=== PATIENT | female | born 1995 | race Caucasian/White ===

== ENCOUNTER 2017-09-16 00:54 | Emergency (ER) | payer BC, OTHER ==
[2017-09-16 01:06] VITALS: BP 97/69; PULSE 88; TEMP 97.6; BMI 19.6
[2017-09-16] MEDS ORDERED: MAG HYDROX/AL HYDROX/SIMETH 30 ML UNIT-DOSE CUP PO ONE (01:06)
[2017-09-16] MEDS ORDERED: LIDOCAINE VISCOUS 2% ORAL/TOP 20 ML UNIT-DOSE CUP MM ONE (01:09)
--- NOTE | 2017-09-16 01:11 | PDOC ---
History of Present Illness - General Chief Complaint: Pain, Acute Stated Complaint: ABDOMINAL PAIN Time Seen by Provider: 09/16/17 01:06 History Source: Patient Exam Limitations: No Limitations - History of Present Illness Initial Comments: 09/16/17 01:11 This is a 22-year-old female who comes in complaining of burning epigastric pain that began tonight. Patient said she's had 2 episodes of similar pain in the past. Patient saw a GI doctor today and was told it may be gallstones. Patient denies any nausea, vomiting, diarrhea. Patient denies any fevers or chills. Patient did not take anything for the pain. PAST MEDICAL HISTORY: no significant history PAST SURGICAL HISTORY: no significant history FAMILY HISTORY: no pertinant history SOCIAL HISTORY: Pt lives with family and is employed. MEDICATIONS: reviewed ALLERGIES: As per nursing notes Review of Systems General: No fevers or chills, no weakness, no weight loss HEENT: No change in vision. No sore throat,. No ear pain CardioVascular: No chest pain or shortness of breath Respiratory:No cough, or wheezing. Gastrointestinal: no nausea, vomitting, diarrhea or constipation, No rectal bleeding Genitourinary: No dysuria, hematuria, or frequency Musculoskeletal: No joint or muscle pain or swelling Neurologic: No headache, vertigo, dizziness or loss of consciousness Psychiatric: nor depression Skin: No rashes or easy bruising Endocrine: no increased thirst or abnormal weight change Allergic: no skin or latex allergy All other systems reviewed and normal Exam: General: Well-nourished well-developed individual, no acute distress HEENT: Throat: Normal, tonsils normal, no erythema or exudate Neck: Supple, no meningeal signs, no lymphadenopathy Eyes::Pupils equal reactive and round, extraocular motion intact Chest: Nontender to palpation Abdomen: Soft, nondistended, normal bowel sounds, nontender to palpation diffusely Extremities: Warm, dry, no cyanosis, clubbing, or edema Skin: No rashes Neuro: Alert and oriented x3, CN II - XII intact, nonfocal exam with normal strength, normal sensation, normal reflexes, normal gait, Psych: Normal mood and affect Medical decision making: This is a 22-year-old female comes in complaining of a burning type of epigastric pain. We'll get a ultrasound of the gallbladder to rule out gallstones We'll give antacid and reassess and reevaluate results of workup. 09/16/17 02:20 Patient feels much better after the antacids. Patient resting comfortably. Patient's ultrasound negative for any gallstones or acute pathology. Patient discharged home with her parents will follow-up with her primary care doctor, her GI doctor and patient was told to get some [id number]-uxohozn S and antacids such as Pepcid or Zantac and take them Past History - Past Medical History Allergies/Adverse Reactions: Allergies Allergy/AdvReac Type Severity Reaction Status Date / Time No Known Allergies Allergy Verified 11/15/14 17:16 Home Medications: Ambulatory Orders Sertraline HCl [Zoloft] 100 mg PO DAILY 11/15/14 [place] Carbonate [Eskalith -] 1,100 mg PO DAILY 09/16/17 Pantoprazole Sodium [Protonix -] 20 mg PO DAILY 09/16/17 Peppermint Oil [Ibgard] 90 mg PO DAILY 09/16/17 Quetiapine Fumarate [Seroquel -] 200 mg PO HS 09/16/17 COPD: No GI Disorders: Yes Psychiatric Problems: Yes - Immunization History Immunization Up to Date: Yes - Suicide/Smoking/Psychosocial Hx Smoking History: Never smoked Hx Alcohol Use: No Substance Use Type: None *Physical Exam - Vital Signs Last Vital Signs Temp Pulse Resp BP Pulse Ox 97.6 F 88 16 97/69 100 09/16/17 01:00 09/16/17 01:00 09/16/17 01:00 09/16/17 01:00 09/16/17 01:00 *DC/Admit/Observation/Transfer Diagnosis at time of Disposition: Gastritis Qualifiers: Gastritis type: unspecified gastritis Chronicity: acute Gastritis bleeding: without bleeding Qualified Code(s): K29.00 - Acute gastritis without bleeding - Discharge Dispostion Disposition: HOME Condition at time of disposition: Stable - Referrals Referrals: ON STAFF,NOT [Primary Care Provider] - - Patient Instructions Additional Instructions: Get some [id number] antacids such as Pepcid or Zantac and take addition to that follow-up with your GI doctor. Your ultrasound was negative for any gallstones. Return to the emergency department immediately with ANY new, persistent or worsening symptoms. Continue any medications as previously prescribed by your physician. You should follow up with your primary doctor as soon as possible regarding today's emergency department visit. . Please make sure your doctor reviews the results of your emergency evaluation. Thank you for coming to the Emergency Department today for your care. It was a pleasure to see you today. Please note that your evaluation is INCOMPLETE until you follow-up with your doctor. - Post Discharge Activity
[2017-09-16] MEDS ORDERED: FAMOTIDINE IV 20 MG/12 ML VIAL IVPUSH ONE (01:17)
== END 2017-09-16 02:31 | disposition home or self-care (01) ==
LOC: FER 00:54
DX: K29.00 Acute gastritis without bleeding (principal); F99 Mental disorder, not otherwise specified
CPT/HCPCS: 76705-TC; 99282-25